=== PATIENT | female | born 1960 | race African-American/Black ===

== ENCOUNTER 2018-12-14 08:04 | Emergency (ER) | payer MEDICAID ==
[~2018-12-14] VITALS: Ht 170.2 cm; Wt 82.0 kg
[2018-12-14] MEDS ORDERED: HYDROCODONE/ACETAMINOPHEN 5/325MG TABLET PO ONE (08:45)
[2018-12-14 09:50] VITALS: BP 156/86
== END 2018-12-14 09:46 | disposition home or self-care (01) ==
LOC: ER 08:04
DX: M79.601 Pain in right arm (principal); F12.10 Cannabis abuse, uncomplicated; W18.39XA Other fall on same level, initial encounter; Y93.89 Activity, other specified; Y92.89 Other specified places as the place of occurrence of the external cause; Y99.8 Other external cause status
CPT/HCPCS: 73060; 99283; A4565

== ENCOUNTER 2019-11-28 05:23 | Emergency (ER) | payer MEDICAID ==
[~2019-11-28] VITALS: Ht 170.2 cm; Wt 81.0 kg
[2019-11-28] MEDS ORDERED: CEFTRIAXONE SODIUM 250 MG/VIAL IM ONE (06:00)
[2019-11-28] MEDS ORDERED: IBUPROFEN 600MG TABLET PO ONE (06:00)
[2019-11-28] MEDS ORDERED: AZITHROMYCIN 500 MG TABLET PO ONE (06:00)
[2019-11-28 06:40] LABS: CLARITY URINE CLOUDY (CLEAR); COLOR URINE YELLOW (YELLOW); KETONES URINE NEGATIVE (NEGATIVE); LEUKOCYTE ESTERASE URINE 3+ (NEGATIVE); NITRITE URINE NEGATIVE (NEGATIVE); OCCULT BLOOD URINE 3+ (NEGATIVE); PH URINE 5.5 (4.5-8.0); PROTEIN URINE 1+ (NEGATIVE); UROBILINOGEN URINE 0.2 E.U./dL (0.2-1.0)
[2019-11-28 07:39] LABS: BASOPHILS % 0.5 % (0.0-2.0); EOSINOPHILS % 0.6 % (0.0-5.0); HEMOGLOBIN. 14.7 g/dL (12.0-16.0); LYMPHOCYTES % 28.8 % (20.0-50.0); MEAN CORPUSCULAR HEMOGLOBIN 34.2 pg (28.0-32.0); MEAN CORPUSCULAR VOLUME 99.9 fL (81.0-99.0); MEAN PLATELET VOLUME 9.2 fl (7.4-10.4); MONOCYTES % 5.8 % (2.0-8.0); NEUTROPHILS % 64.3 % (40.0-76.0); PLATELET 244 x1000/uL (130-400); RED CELL DISTRIBUTION WIDTH 14.3 % (11.6-14.6)
[2019-11-28 07:46] LABS: CHLORIDE 109 mEq/L (98-107)
[2019-11-28 08:35] VITALS: BP 149/85
== END 2019-11-28 08:50 | disposition home or self-care (01) ==
LOC: ER 05:23
DX: N12 Tubulo-interstitial nephritis, not specified as acute or chronic (principal); F17.290 Nicotine dependence, other tobacco product, uncomplicated; Z90.710 Acquired absence of both cervix and uterus
CPT/HCPCS: 36415; 74176; 80053; 81003; 83690; 85025; 87077; 87086; 87186; 96372; 99284; J0696

== ENCOUNTER 2020-02-09 08:34 | Emergency (ER) | payer MEDICAID ==
[~2020-02-09] VITALS: Ht 167.6 cm; Wt 75.0 kg
[2020-02-09 08:40] VITALS: BP 150/78
[2020-02-09] MEDS ORDERED: DIPHENHYDRAMINE 25MG CAPSULE PO ONE (10:15)
[2020-02-09] MEDS ORDERED: ACETAMINOPHEN 500MG TABLET PO ONE (10:15)
== END 2020-02-09 10:31 | disposition home or self-care (01) ==
LOC: ER 08:34
DX: M79.10 Myalgia, unspecified site (principal); R21 Rash and other nonspecific skin eruption; K21.9 Gastro-esophageal reflux disease without esophagitis; Z90.710 Acquired absence of both cervix and uterus
CPT/HCPCS: 99283; Q0163

== ENCOUNTER → 2020-04-29 | Outpatient (CLI) | payer MEDICAID ==
[~2020-04-29] MED LIST: ASPI-1497 PO; DIAZ5TAB PO; MELA2.5T PO
== END | disposition home or self-care (01) ==
LOC: LAB 10:06
PROVIDERS: ATTEND Internal Medicine
DX: Z01.812 Encounter for preprocedural laboratory examination (principal); Z20.828 Contact with and (suspected) exposure to other viral communicable diseases
CPT/HCPCS: C9803; U0003

== ENCOUNTER 2020-05-01 05:26 | Day surgery (SDC) | payer MEDICAID ==
[~2020-05-01] VITALS: Ht 170.2 cm; Wt 80.7 kg
[2020-05-01] MEDS ORDERED: SKIN ADHESIVE 0.7 GM EA TOP ONE (07:08)
[2020-05-01] MEDS ORDERED: BUPIVACAINE HCL 0.5% (5MG/ML) 50ML ONE (07:08)
[2020-05-01] MEDS ORDERED: ACETAMINOPHEN 500MG TABLET PO NR (07:15)
[2020-05-01] MEDS ORDERED: ACETAMINOPHEN 500MG TABLET ONE (07:17)
[2020-05-01] MEDS ORDERED: MELA2.5T PO (07:24)
[2020-05-01] MEDS ORDERED: DIAZ5TAB PO (07:24)
[2020-05-01] MEDS ORDERED: ASPI-1497 PO (07:24)
[2020-05-01] MEDS ORDERED: LACTATED RINGERS 1,000 ML IV SCH (07:29)
[2020-05-01] MEDS ORDERED: FENTANYL CITRATE/PF 50MCG/ML 2ML VIAL ONE ×2 (07:31→08:50)
[2020-05-01] MEDS ORDERED: MIDAZOLAM HCL 2 MG/2 ML VIAL ONE (07:32)
[2020-05-01] MEDS ORDERED: ROCURONIUM BROMIDE 10MG/ML VIAL 5ML IV ONE (07:32)
[2020-05-01] MEDS ORDERED: LIDOCAINE HCL/PF 1% 10 MG/ML 5ML VIAL ONE (07:32)
[2020-05-01] MEDS ORDERED: CEFAZOLIN SODIUM 1000MG/VIAL ONE (07:32)
[2020-05-01] MEDS ORDERED: SUCCINYLCHOLINE CHLORIDE 200MG/10ML IV ONE (07:32)
[2020-05-01] MEDS ORDERED: PROPOFOL 200MG/20ML VIAL IV ONE (07:32)
[2020-05-01] MEDS ORDERED: ONDANSETRON HCL 4MG/2ML INJ ONE (07:33)
[2020-05-01] MEDS ORDERED: SODIUM CHLORIDE 0.9% 10ML VIAL ONE ×2 (07:33→07:53)
[2020-05-01] MEDS ORDERED: METOCLOPRAMIDE HCL 10MG/2ML VIAL ONE (07:33)
[2020-05-01] MEDS ORDERED: PHENYLEPHRINE HCL 10 MG/ML 1ML (IV VIAL) IV ONE (07:40)
[2020-05-01] MEDS ORDERED: LABETALOL HCL 5MG/ML VIAL 20ML IV ONE (07:50)
[2020-05-01] MEDS ORDERED: GLYCOPYRROLATE 0.2 MG/ML 2ML VIAL ONE (08:22)
[2020-05-01] MEDS ORDERED: NEOSTIGMINE METHYLSULFATE 1MG/ML 10 ML VIAL ONE (08:22)
[2020-05-01] MEDS ORDERED: DEXAMETHASONE 4MG/ML 1ML VIAL ONE (08:28)
[2020-05-01] MEDS ORDERED: KETOROLAC 30MG/ML VIAL ONE (08:29)
[2020-05-01] MEDS ORDERED: HYDROMORPHONE HCL/PF 2MG/ML CPJ IV PRN (08:30)
[2020-05-01] MEDS ORDERED: MEPERIDINE HCL/PF 25MG/ML CPJ IV PRN (08:30)
[2020-05-01] MEDS ORDERED: DIPHENHYDRAMINE 50MG/ML VIAL IV NR (08:44)
[2020-05-01] MEDS ORDERED: HYDROCODONE/ACETAMINOPHEN 10/325MG TABLET PO SCH (10:00)
[2020-05-01 10:09] VITALS: BP 140/94
== END 2020-05-01 10:30 | disposition home or self-care (01) ==
LOC: OR 05:26
PROVIDERS: ATTEND Surgery
DX: K80.10 Calculus of gallbladder with chronic cholecystitis without obstruction (principal); Z79.82 Long term (current) use of aspirin; Z79.899 Other long term (current) drug therapy; Z98.890 Other specified postprocedural states
CPT/HCPCS: 47562; 88304; J0330; J0690; J1100; J1885; J2175; J2250; J2370; J2405; J2704; J2710; J2765; J3010; J3490; J7030; 73706